=== PATIENT | female | born 1960 | race Two or more races ===

== ENCOUNTER 2019-05-13 09:48 | Emergency (ER) | payer OTHER ==
[~2019-05-13] VITALS: Ht 160 cm; Wt 76.2 kg
--- NOTE | 2019-05-13 09:50 | NUR ---
[id number], FROM WORK S/P MECHANICAL FALL, "SLIPPED AND FELL OVER THE CURVE", -KO, LAC ON THE NOSE, NO BLEEDING NOTED, 8/10 PS. TO ER BED 10, HOOKED TO MONITOR, CHANGED TO [facility], AWAITING MD MORA
--- NOTE | 2019-05-13 10:02 | NUR ---
DR REYNA AT BEDSIDE
[2019-05-13] MEDS ORDERED: HYDROCODONE/APAP 5/325MG 1 EACH TABLET ONE (11:28)
[2019-05-13] MEDS ORDERED: TDAP [DIPH/PERTUSSIS/TET] 0.5 ML VIAL IM ONE (11:28)
[2019-05-13] MEDS: TDAP [DIPH/PERTUSSIS/TET] 0.5 ML VIAL IM ONE (11:37)
[2019-05-13] MEDS: HYDROCODONE/APAP 5/325MG 1 EACH TABLET PO ONE (11:38)
--- NOTE | 2019-05-13 11:55 | NUR ---
Patient discharged to home in stable condition. Written and verbal after care instructions given. Patient verbalizes understanding of instruction.
[2019-05-13 11:56] VITALS: BP 142/99
== END 2019-05-13 11:57 | disposition home or self-care (01) ==
LOC: ER 09:50
DX: S01.512A Laceration without foreign body of oral cavity, initial encounter (principal); I10 Essential (primary) hypertension; E11.9 Type 2 diabetes mellitus without complications; W01.0XXA Fall on same level from slipping, tripping and stumbling without subsequent striking against object, initial encounter; Y93.89 Activity, other specified; Y92.481 Parking lot as the place of occurrence of the external cause; Y99.8 Other external cause status
CPT/HCPCS: 70450; 70486; 72125; 90471; 90715; 99284; A6403